=== PATIENT | female | born 1945 | race Caucasian/White ===

== ENCOUNTER 2019-03-17 21:54 | Emergency (ER) | payer BC ==
[~2019-03-17] VITALS: Ht 154.9 cm; Wt 61.2 kg
[2019-03-17] MEDS ORDERED: KETOROLAC TROMETHAMINE 30 MG INJ ONE (22:41)
[2019-03-17] MEDS ORDERED: MORPHINE SULFATE 2 MG/1 ML DISP.SYRIN ONE (22:41)
[2019-03-17] MEDS ORDERED: KETOROLAC TROMETHAMINE 30 MG INJ IM ONE (22:45)
[2019-03-17] MEDS ORDERED: MORPHINE SULFATE 2 MG/1 ML DISP.SYRIN IM ONE (22:45)
[2019-03-17] MEDS ORDERED: FENTANYL CITRATE 100 MCG/2 ML AMPUL IM ONE (23:45)
[2019-03-17] MEDS ORDERED: FENTANYL CITRATE 100 MCG/2 ML AMPUL ONE (23:49)
--- NOTE | 2019-03-17 23:55 | NUR ---
ABLE TO TOLERATE PAIN MEDS DENIES PAIN ABLE TO TOLERATE SHOULDER IMMOBILIZER
--- NOTE | 2019-03-18 00:12 | NUR ---
Patient discharged to home in stable conditon. Written and verbal after care instructions given. Patient verbalizes understanding of instructions. AMBULATORY W/ STABLE GAIT ALL BELONGINGS W/ PT DC VIA WHEELCHAIR AND ABLE TO TRANSFER TO VEHICLE WILL BE DRIVING HOME
[2019-03-18 00:13] VITALS: BP 110/72
== END 2019-03-18 00:18 | disposition home or self-care (01) ==
LOC: ER 21:54
DX: S42.302A Unspecified fracture of shaft of humerus, left arm, initial encounter for closed fracture (principal); E03.9 Hypothyroidism, unspecified; Z88.2 Allergy status to sulfonamides; W18.39XA Other fall on same level, initial encounter; Y93.89 Activity, other specified; Y92.89 Other specified places as the place of occurrence of the external cause; Y99.8 Other external cause status
CPT/HCPCS: 29105; 73030; 73060; 96372 ×3; 99283; J1885; J2270; J3010; A4663

== ENCOUNTER 2019-08-31 18:25 | Emergency (ER) | payer BC ==
[~2019-08-31] VITALS: Ht 154.9 cm; Wt 61.2 kg
[2019-08-31] MEDS ORDERED: KETOROLAC TROMETHAMINE 30 MG INJ IM ONE (18:45)
[2019-08-31] MEDS ORDERED: MORPHINE SULFATE 2 MG/1 ML DISP.SYRIN IM ONE ×2 (18:45→20:00)
[2019-08-31] MEDS ORDERED: MORPHINE SULFATE 2 MG/1 ML DISP.SYRIN ONE ×2 (18:53→19:36)
[2019-08-31] MEDS ORDERED: KETOROLAC TROMETHAMINE 30 MG INJ ONE (18:53)
--- NOTE | 2019-08-31 18:55 | NUR ---
PATIENT INJURED HER LEFT WRIST TODAY. SHE HAS IT ELEVATED ON A PILLOW AND AN ICE PACK IS APPLIED. MEDICATIONS GIVEN ORDERED. XRAY IN PROCESS.....
--- NOTE | 2019-08-31 18:56 | NUR ---
HAND OFF REPORT GIVEN TO APPLE
[2019-08-31] MEDS ORDERED: LIDOCAINE HCL 1% 20 ML VIAL IJ ONE (19:00)
[2019-08-31] MEDS ORDERED: LIDOCAINE HCL 1% 20 ML VIAL ONE (19:07)
--- NOTE | 2019-08-31 19:30 | NUR ---
Dr. Son at [facility].
[2019-08-31] MEDS ORDERED: PROPOFOL 200 MG/20 ML BOTTLE ONE (20:00)
[2019-08-31] MEDS ORDERED: KETAMINE HCL 500 MG/10 ML INJ IV ONE (20:00)
[2019-08-31] MEDS ORDERED: PROPOFOL 200 MG/20 ML BOTTLE IV ONE ×2 (20:00→21:00)
--- NOTE | 2019-08-31 20:10 | NUR ---
Patient prepared for conscious sedation for closed reduction of left forearm. patient is awake, alert and oriented x4, procedure explained by Dr. Son at bedside. consent was signed. IV 18 gauge palced in right AC. connected patient to monitor, pulse ox and bp. RT Ken notified for procedure.
[2019-08-31] MEDS ORDERED: KETAMINE HCL 500 MG/10 ML INJ ONE (20:13)
[2019-08-31] MEDS ORDERED: NALOXONE HCL 0.4 MG/ML AMPUL IV ONE (20:15)
[2019-08-31] MEDS ORDERED: NALOXONE HCL 0.4 MG/ML AMPUL ONE (20:15)
--- NOTE | 2019-08-31 20:15 | NUR ---
Patient placed on O2 4L via NC, respirations and unlabored at this time. Dr. Son, RT Wesley Rogers RN and myself at bedside, time out done. 2018- ketamine given per order 2019- propofol given per order. 2029- procedure completed, patient is awake and alert at this time, left arm in splint, CSM intact.
--- NOTE | 2019-08-31 21:00 | NUR ---
Placed patient back on RA per Dr. Son order, VSS, CSM intact left hand.
[2019-08-31 21:30] VITALS: BP 140/56
--- NOTE | 2019-08-31 21:30 | NUR ---
Patient discharged to home in stable condition. Written and verbal after care instructions given. Patient verbalizes understanding of instructions. Stressed follow up or return to ER for worsening s/s. patient left with stable gait.
== END 2019-08-31 21:41 | disposition home or self-care (01) ==
LOC: ER 18:27
PROC: 0PSJXZZ Reposition Left Radius, External Approach (ICD-10-PCS; principal; 2019-08-31)
DX: S52.572A Other intraarticular fracture of lower end of left radius, initial encounter for closed fracture (principal); W18.39XA Other fall on same level, initial encounter; Y93.89 Activity, other specified; Y92.89 Other specified places as the place of occurrence of the external cause; E03.9 Hypothyroidism, unspecified; I34.1 Nonrheumatic mitral (valve) prolapse
CPT/HCPCS: 25605; 73100; 73110; 96372; 99152; 99285; J1885; J2270 ×2; J3490 ×2; A4663; G0500; J2310